=== PATIENT | male | born 1995 | race Caucasian/White ===

== ENCOUNTER 2018-07-12 22:56 | Emergency (ER) | payer BC, MEDICAID, OTHER ==
[~2018-07-12] VITALS: Ht 175.3 cm; Wt 45.0 kg
[~2018-07-12 22:56] MED LIST: NO HOME MEDS; ONDA4TAB6 PO; ONDA8TAB6 PO; ONDA8TAB9 PO; PANT20TA3 PO
[2018-07-13] MEDS ORDERED: AMOX500C2 PO (00:46)
[2018-07-13] MEDS ORDERED: bupivacaine 0.25%/epinephrine 1:200,000 inj (contains preserv. MDV) IJ ONE (00:50)
[2018-07-13] MEDS ORDERED: BUPIVAcaine/PF 2.5mg/ml (0.25%) 10ml vial IJ ONE (00:55)
[2018-07-13 01:13] VITALS: BP 118/70
== END 2018-07-13 01:15 | disposition home or self-care (01) ==
LOC: ER 22:57
DX: K08.89 Other specified disorders of teeth and supporting structures (principal); F12.90 Cannabis use, unspecified, uncomplicated
CPT/HCPCS: 64400; 99284; J3490

== ENCOUNTER 2019-10-04 10:31 | Emergency (ER) | payer MEDICAID ==
[~2019-10-04] VITALS: Ht 175.3 cm; Wt 63.6 kg
[~2019-10-04 10:31] MED LIST changes: +SUCR1TAB34 PO
--- NOTE | 2019-10-04 11:01 | NUR ---
provider at bedside to evaluate pt
[2019-10-04] MEDS ORDERED: LORazepam 1 MG tablet PO ONE ×3 (11:10→14:15)
[2019-10-04] MEDS ORDERED: normal saline 1000ML IV soln IVB ONE (11:10)
[2019-10-04 11:29] LABS: CLARITY,URINE BLOODY (Clear); COLOR,URINE RED (Yellow); UA COLLECTION TYPE CLN CATCH MIDSTREAM
[2019-10-04 11:31] LABS: BASOPHILS # (AUTO) 0.1 X10'3 (0-0.2); BASOPHILS % (AUTO) 0.5 % (0-1); EOSINOPHILS # (AUTO) 0.2 X10'3 (0-0.9); EOSINOPHILS % (AUTO) 1.6 % (0-6); HEMATOCRIT 42.8 % (42.0-52.0); HEMOGLOBIN 14.5 g/dl (14.0-17.9); LYMPHOCYTES # (AUTO) 4.1 X10'3 (1.1-4.8); LYMPHOCYTES % (AUTO) 40.6 % (21-51); MEAN CORPUSCULAR HEMOGLOBIN 31.6 PG (27.0-31.0); MEAN CORPUSCULAR HGB CONC 33.9 g/dL (33.0-36.5); MEAN CORPUSCULAR VOLUME 93.1 FL (78-98); MONOCYTES # (AUTO) 0.9 X10'3 (0-0.9); MONOCYTES % (AUTO) 9.2 % (2-12); NEUTROPHILS # (AUTO) 4.8 X10'3 (1.8-7.7); NEUTROPHILS % (AUTO) 48.1 % (42-75); PLATELET COUNT 335 X10'3 (140-440); RED BLOOD COUNT 4.59 X10'6 (4.70-6.10); RED CELL DISTRIBUTION WIDTH 13.5 % (11.5-14.5)
[2019-10-04 11:36] LABS: RBC,URINE TNTC /HPF (0-2)
[2019-10-04 11:37] LABS: ALANINE AMINOTRANSFERASE 18 U/L (12-78); ALBUMIN 4.2 G/DL (3.4-5.0); ALBUMIN/GLOBULIN RATIO 1.4 (1.1-1.5); ALKALINE PHOSPHATASE 111 IU/L (46-116); ANION GAP 8 (8-16); ASPARTATE AMINO TRANSFERASE 26 U/L (10-37); BILIRUBIN,TOTAL 0.5 MG/DL (0.1-1.0); BLOOD UREA NITROGEN 8 MG/DL (7-18); BUN/CREATININE RATIO 8.8 (5.4-32.0); CALCIUM 8.9 MG/DL (8.5-10.1); CHLORIDE 110 MMOL/L (99-107); CREATININE 0.91 MG/DL (0.60-1.10); GLUCOSE 77 MG/DL (70-104); LIPASE 155 U/L (73-393); POTASSIUM 3.6 MMOL/L (3.5-5.1); SODIUM 145 MMOL/L (135-145); TOTAL CARBON DIOXIDE 26.6 MMOL/L (24-32); TOTAL PROTEIN 7.3 G/DL (6.4-8.2); eGFR > 90 ML/MIN
[2019-10-04 11:39] LABS: BACTERIA,URINE 1+ /HPF (Neg)
[2019-10-04 11:40] LABS: SQUAMOUS EPITHELIAL CELL,UR NONE SEEN /LPF (FEW)
--- NOTE | 2019-10-04 11:43 | NUR ---
shop tech at bedside
--- NOTE | 2019-10-04 13:39 | NUR ---
pt standing in room, playing phone,
[2019-10-04] MEDS ORDERED: iohexol 300mg/ml 100ml inj. ONE (14:14)
--- NOTE | 2019-10-04 14:35 | NUR ---
pt c/o feeling anxious, lying on bed in dark room trying to relax
--- NOTE | 2019-10-04 14:37 | NUR ---
pt to CT
[2019-10-04] MEDS ORDERED: azithromycin 250mg tablet PO ONE (15:50)
[2019-10-04] MEDS ORDERED: CefTRIAXone 250MG IM Kit w/LIDOcaine IM ONE (15:50)
[2019-10-04 15:51] VITALS: BP 94/53
== END 2019-10-04 16:15 | disposition home or self-care (01) ==
LOC: ER 10:31
DX: R31.9 Hematuria, unspecified (principal); F12.90 Cannabis use, unspecified, uncomplicated; F41.9 Anxiety disorder, unspecified; Z98.890 Other specified postprocedural states; Z72.89 Other problems related to lifestyle; Z79.2 Long term (current) use of antibiotics; Z79.899 Other long term (current) drug therapy
CPT/HCPCS: 36415; 71045; 74178; 76775; 80053; 81001; 83690; 84484; 85025; 87088; 93005; 96372; 99285; J0696; J7030; Q9967

== ENCOUNTER 2020-01-22 08:59 | Emergency (ER) | payer MEDICAID ==
[~2020-01-22] VITALS: Ht 175.3 cm; Wt 54.5 kg
[2020-01-22 09:07] VITALS: BP 111/78
[2020-01-22] MEDS ORDERED: AMOX500C2 PO (09:36)
[2020-01-22] MEDS ORDERED: ACET-2615 PO (09:36)
[2020-01-22] MEDS ORDERED: IBUP-1984 PO (09:36)
== END 2020-01-22 09:50 | disposition home or self-care (01) ==
LOC: ER 08:59
DX: K08.89 Other specified disorders of teeth and supporting structures (principal); F41.9 Anxiety disorder, unspecified; F20.9 Schizophrenia, unspecified; F12.90 Cannabis use, unspecified, uncomplicated; Z72.89 Other problems related to lifestyle; Z98.890 Other specified postprocedural states; Z88.8 Allergy status to other drugs, medicaments and biological substances; Z79.899 Other long term (current) drug therapy
CPT/HCPCS: 99283

== ENCOUNTER 2020-11-25 06:49 | Emergency (ER) | payer MEDICAID ==
[~2020-11-25] VITALS: Ht 175.3 cm; Wt 53.6 kg
[~2020-11-25 06:49] MED LIST changes: +PANT20TA18 PO; -PANT20TA3 PO
[2020-11-25] MEDS ORDERED: ibuprofen tablet 400 MG TABLET PO ONE (07:10)
[2020-11-25] MEDS ORDERED: ondansetron 4mg rapidly disintigrating tab PO ONE (07:10)
[2020-11-25] MEDS ORDERED: LIDOcaine Viscous 15ml cup MM ONE (07:10)
[2020-11-25 07:32] VITALS: BP 123/79
== END 2020-11-25 07:26 | disposition home or self-care (01) ==
LOC: ER 06:49
DX: B34.9 Viral infection, unspecified (principal); Z20.822 Contact with and (suspected) exposure to COVID-19; R11.0 Nausea; R05 Cough; R09.81 Nasal congestion; R51.9 Headache, unspecified; F41.9 Anxiety disorder, unspecified; F20.9 Schizophrenia, unspecified; F31.9 Bipolar disorder, unspecified; F12.90 Cannabis use, unspecified, uncomplicated; Z98.890 Other specified postprocedural states; Z72.89 Other problems related to lifestyle; Z88.1 Allergy status to other antibiotic agents; Z79.899 Other long term (current) drug therapy
CPT/HCPCS: 87635; 99284; C9803

== ENCOUNTER 2020-12-14 06:17 | Emergency (ER) | payer MEDICAID ==
[~2020-12-14] VITALS: Ht 167.6 cm; Wt 125.5 kg
[2020-12-14 06:19] VITALS: BP 134/102
[2020-12-14] MEDS ORDERED: bupivacaine 0.25%/epinephrine 1:200,000 inj (contains preserv. MDV) IJ ONE (07:35)
[2020-12-14] MEDS ORDERED: HYDROcodone/acetaminophen 10/325mg tab PO ONE (07:35)
[2020-12-14] MEDS ORDERED: amox tr/potassium clavulanate 875/125mg TAB PO ONE (07:35)
[2020-12-14] MEDS ORDERED: naproxen 500mg tablet PO ONE (07:35)
[2020-12-14] MEDS ORDERED: BUPIVAcaine 0.5% W/EPI /PF 10ml vial IJ ONE (07:45)
[2020-12-14] MEDS ORDERED: HYDR-3965 PO (10:02)
[2020-12-14] MEDS ORDERED: NAPR-56 PO (10:02)
[2020-12-14] MEDS ORDERED: AMOX-117 PO (10:02)
== END 2020-12-14 10:25 | disposition home or self-care (01) ==
LOC: ER 06:17
DX: K01.1 Impacted teeth (principal); K08.89 Other specified disorders of teeth and supporting structures; F41.9 Anxiety disorder, unspecified; F12.90 Cannabis use, unspecified, uncomplicated; Z98.890 Other specified postprocedural states; Z72.89 Other problems related to lifestyle; Z88.1 Allergy status to other antibiotic agents; Z79.2 Long term (current) use of antibiotics; Z79.899 Other long term (current) drug therapy
CPT/HCPCS: 64400; 99284

== ENCOUNTER 2022-05-06 13:40 | Emergency (ER) | payer MEDICAID ==
[~2022-05-06] VITALS: Ht 175.3 cm; Wt 59.1 kg
[2022-05-06 14:06] VITALS: BP 113/71
[2022-05-06] MEDS ORDERED: SULF1TAB49 PO (17:25)
[2022-05-06] MEDS ORDERED: CEPH500C82 PO (17:25)
[2022-05-06] MEDS ORDERED: acetaminophen w/codeine (30MG) #3 tablet PO ONE (17:30)
[2022-05-06] MEDS ORDERED: cephalexin 500mg capsule PO ONE (17:30)
[2022-05-06] MEDS ORDERED: sulfamethoxazole/trimethoprim DS (800/160mg) tablet PO ONE (17:30)
[2022-05-06] MEDS ORDERED: ACET-1059 PO (17:33)
== END 2022-05-06 18:05 | disposition home or self-care (01) ==
LOC: ER 13:40
DX: L02.413 Cutaneous abscess of right upper limb (principal); L03.113 Cellulitis of right upper limb; F41.9 Anxiety disorder, unspecified; F17.200 Nicotine dependence, unspecified, uncomplicated; F12.90 Cannabis use, unspecified, uncomplicated; Z98.890 Other specified postprocedural states; Z88.1 Allergy status to other antibiotic agents; Z79.899 Other long term (current) drug therapy
CPT/HCPCS: 99284

== ENCOUNTER 2023-01-09 12:53 | Emergency (ER) | payer MEDICAID ==
[~2023-01-09] VITALS: Ht 172.7 cm; Wt 56.8 kg
[2023-01-09 13:24] LABS: BASOPHILS % (AUTO) 0.4 % (0-1); EOSINOPHILS # (AUTO) 0.1 X10'3 (0-0.9); EOSINOPHILS % (AUTO) 1.2 % (0-6); HEMATOCRIT 43.9 % (42.0-52.0); HEMOGLOBIN 14.8 g/dl (14.0-17.9); LYMPHOCYTES # (AUTO) 1.8 X10'3 (1.1-4.8); LYMPHOCYTES % (AUTO) 23.5 % (21-51); MEAN CORPUSCULAR HEMOGLOBIN 31.2 PG (27.0-31.0); MEAN CORPUSCULAR HGB CONC 33.7 g/dL (33.0-36.5); MEAN CORPUSCULAR VOLUME 92.6 FL (78-98); MEAN PLATELET VOLUME 6.7 FL (7.4-10.4); MONOCYTES # (AUTO) 0.9 X10'3 (0-0.9); MONOCYTES % (AUTO) 11.4 % (2-12); NEUTROPHILS # (AUTO) 4.9 X10'3 (1.8-7.7); NEUTROPHILS % (AUTO) 63.5 % (42-75); PLATELET COUNT 322 X10'3 (140-440); RED BLOOD COUNT 4.74 X10'6 (4.70-6.10); RED CELL DISTRIBUTION WIDTH 13.2 % (11.5-14.5); WHITE BLOOD COUNT 7.7 X10'3 (4.5-11.0)
[2023-01-09 13:25] VITALS: TEMP 97.9
[2023-01-09 13:31] LABS: ALANINE AMINOTRANSFERASE 26 U/L (12-78); ALBUMIN 3.9 G/DL (3.4-5.0); ALBUMIN/GLOBULIN RATIO 1.1 (1.1-1.5); ALKALINE PHOSPHATASE 114 IU/L (46-116); ANION GAP 12 (8-16); ASPARTATE AMINO TRANSFERASE 20 U/L (10-37); BILIRUBIN,TOTAL 0.5 MG/DL (0.1-1.0); BLOOD UREA NITROGEN 15 MG/DL (7-18); BUN/CREATININE RATIO 16.1 (10.0-20.0); CALCIUM 9.6 MG/DL (8.5-10.1); CHLORIDE 105 MMOL/L (99-107); CREATININE 0.93 MG/DL (0.60-1.10); GLUCOSE 81 MG/DL (70-104); POTASSIUM 3.8 MMOL/L (3.5-5.1); SODIUM 141 MMOL/L (135-145); TOTAL CARBON DIOXIDE 24.4 MMOL/L (24-32); TOTAL PROTEIN 7.3 G/DL (6.4-8.2); eCRCL 97 ML/MIN; eGFR > 90 ML/MIN
[2023-01-09 13:39] LABS: PRO BRAIN NATRIURETIC PEPTIDE 67 PG/ML (0-125)
[2023-01-09] MEDS ORDERED: ketorolac trometh. 30mg/ml inj. IM ONE (16:30)
[2023-01-09] MEDS ORDERED: oxyCODONE/APAP 5-325mg tablet PO ONE (16:30)
[2023-01-09] MEDS ORDERED: IBUP-1984 PO (16:32)
[2023-01-09 16:51] VITALS: BP 125/94; PULSE 64; RESP 20; O2SAT 100
== END 2023-01-09 16:53 | disposition home or self-care (01) ==
LOC: ER 12:53
DX: M94.0 Chondrocostal junction syndrome [Tietze] (principal); F41.9 Anxiety disorder, unspecified; F12.10 Cannabis abuse, uncomplicated; Z88.1 Allergy status to other antibiotic agents; Z79.899 Other long term (current) drug therapy
CPT/HCPCS: 36415; 71045; 80053; 83880; 84484; 85025; 93005; 96372; 99285; J1885

== ENCOUNTER 2023-07-16 23:14 | Emergency (ER) | payer MEDICAID ==
[~2023-07-16] VITALS: Ht 172.7 cm; Wt 54.5 kg
[2023-07-16 23:20] VITALS: BP 137/80; PULSE 109; TEMP 97.9; O2SAT 100
[2023-07-17 00:14] VITALS: RESP 16
[2023-07-17] MEDS: HYDROcodone/acetaminophen 5mg/325mg tablet PO ONE (00:14)
[2023-07-17] MEDS ORDERED: HYDR-3965 PO (00:18)
== END 2023-07-17 00:35 | disposition home or self-care (01) ==
LOC: ER 23:15
DX: S60.221A Contusion of right hand, initial encounter (principal); F20.9 Schizophrenia, unspecified; F12.10 Cannabis abuse, uncomplicated; F41.9 Anxiety disorder, unspecified; F31.9 Bipolar disorder, unspecified; Z88.1 Allergy status to other antibiotic agents; Z79.899 Other long term (current) drug therapy; X58.XXXA Exposure to other specified factors, initial encounter; Y93.89 Activity, other specified; Y92.89 Other specified places as the place of occurrence of the external cause; Y99.8 Other external cause status
CPT/HCPCS: 29125; 73130; 99283

== ENCOUNTER 2023-09-11 18:33 | Emergency (ER) | payer MEDICAID ==
[~2023-09-11] VITALS: Ht 172.7 cm; Wt 58.0 kg
[2023-09-11 18:51] VITALS: BP 108/76; PULSE 105; RESP 20; TEMP 98.2; O2SAT 96
[2023-09-11] MEDS ORDERED: CHLO25CA10 PO (21:06)
[2023-09-11] MEDS: cloNIDine 0.1 MG/24 HOUR patch (7 day patch) TD ONE (21:23)
== END 2023-09-11 21:33 | disposition home or self-care (01) ==
LOC: ER 18:34
DX: F10.239 Alcohol dependence with withdrawal, unspecified (principal); F11.23 Opioid dependence with withdrawal; F19.10 Other psychoactive substance abuse, uncomplicated; F12.90 Cannabis use, unspecified, uncomplicated; Z88.1 Allergy status to other antibiotic agents; Z79.899 Other long term (current) drug therapy; Y90.9 Presence of alcohol in blood, level not specified
CPT/HCPCS: 99283

== ENCOUNTER 2024-10-30 21:23 | Emergency (ER) | payer MEDICAID ==
[~2024-10-30] VITALS: Ht 172.7 cm; Wt 52.7 kg
[~2024-10-30 21:23] MED LIST changes: +CHLO25CA10 PO
[2024-10-30 21:25] VITALS: TEMP 98.3
[2024-10-30 21:31] VITALS: BP 91/66; PULSE 135; O2SAT 99
--- NOTE | 2024-10-30 21:33 | Physician Documentation ---
History of Present Illness ~ Chief Complaint: Abdominal Pain Stated Complaint: FLANK PAIN Time Seen by MD: 21:30 Primary Medical Doctor: Chanda HELLER Patient presents to the emergency room with one day history of right flank pain. No prior instances. No dysuria. Patient endorses significant vomiting as well. Medication Reconciliation Allergies: Coded Allergies: clindamycin (Verified Allergy, Unknown, 01/09/23) Scheduled Chlordiazepoxide Hcl (Librium), 25 MG PO Q6H Ondansetron (Zofran Odt), 4 MG PO QID Sucralfate (Carafate), 1 TAB PO ACHS Scheduled PRN Ondansetron Hcl (Zofran), 1 TABLET PO Q6H PRN for nausea Ondansetron Hcl (Zofran), 8 MG PO Q8HPRN PRN for nausea/vomiting Pantoprazole Sodium (Protonix), 20 MG PO DAILY PRN for abdominal cramps Miscellaneous Medications Home Med List (No Home Medications), (Reported) Past Medical History Past Medical History: *GI/HEPATOBILIARY*, Anxiety Past Surgical History: noncontributory, abdominal surgery, other Other Past Family History: Schizophrenia, Bipolar Alcohol Use: Occasionally Drug Use: marijuana Lives with: Family Lives In: Home Occupation: student Review of Systems ROS All review of systems negative except as per HPI Physical Exam Vital Signs: Temperature: 98.3, Source: Oral, Heart Rate: 135, Respiratory Rate: 20, BP: 91/66, Pulse Oximetry: 99, Weight: 52.730 Oxygen Flow Rate: 0 Physical Exam General: Patient is awake, alert, oriented x4 in moderate distress vomiting, diaphoretic Head: Normocephalic and atraumatic. Eyes: Conjunctival normal. EOMI. PERRL. ENT: Mucous membranes moist. Neck: Supple, trachea is midline. Chest: Clear to auscultation bilaterally without rales, rhonchi, or wheezes. There is no accessory muscle use or retractions. Cardiac: Tachycardic and regular without murmurs, gallops, or rubs. Abd: Soft, nondistended, nontender, with normoactive bowel sounds. No guarding, rebound, or rigidity. Positive right-sided CVA tenderness Progress Results/Orders Results/Orders Orders - VÍCTOR PARIS MD Electrocardiogram (10/30/24 21:31) Culture Blood (10/30/24 21:31) Ct Abdomen Pelvis (10/30/24 21:30) Metoclopramide Inj (Reglan Inj) (10/30/24 23:10) Acetaminophen Iv (10/30/24 23:10) Completed Orders - VÍCTOR PARIS MD Ketorolac Trometh 15mg/Ml Vial (Toradol (10/30/24 21:30) Ondansetron Inj. (Zofran 4mg/2ml Vial) (10/30/24 21:30) Normal Saline 1000ml (Sodium Chloride 10 (10/30/24 21:30) Cbc/Diff (10/30/24 21:31) MG (10/30/24 21:31) Procalcitonin (10/30/24 21:31) Lacticsepsis (10/30/24 21:31) Drug Screen, Urine (10/30/24 21:31) Ct Abdomen Pelvis (10/30/24 21:30) CMP (10/30/24 21:39) Lipase (10/30/24 21:39) Ua W/Microscopic, Cult If Ind (10/30/24 22:10) Medications Received in ER Medications (Trade) Dose Ordered Sig/Nicki Route PRN Reason Start Time Stop Time Status Last Admin Dose Admin (Toradol injection) 15 mg ONCE ONCE IV 10/30/24 21:30 10/30/24 21:32 DC 10/30/24 22:11 15 MG (Zofran 4mg/2ml vial) 8 mg ONCE ONCE IV 10/30/24 21:30 10/30/24 21:32 DC 10/30/24 22:10 8 MG Sodium Chloride 1,000 ml @ 1,000 mls/hr ONCE ONCE IV 10/30/24 21:30 10/30/24 22:29 DC 10/30/24 22:09 1,000 MLS/HR Vital Signs 10/30/24 10/30/24 10/30/24 21:25 21:31 22:11 Temp 98.3 Pulse 131 135 Resp 15 20 14 B/P (MAP) 91/66 91/66 (74) Pulse Ox 100 99 O2 Flow Rate 0 0 Laboratory Tests Test 10/30/24 21:41 10/30/24 22:10 White Blood Count 7.9 Red Blood Count 4.65 L Hemoglobin 15.3 Hematocrit 43.9 Mean Corpuscular Volume 94.4 Mean Corpuscular Hemoglobin 32.9 H Mean Corpuscular Hemoglobin Concent 34.9 Red Cell Distribution Width 13.2 Platelet Count 363 Mean Platelet Volume 6.6 L Neutrophils (%) (Auto) 46.8 Lymphocytes (%) (Auto) 38.9 Monocytes (%) (Auto) 11.8 Eosinophils (%) (Auto) 1.9 Basophils (%) (Auto) 0.6 Neutrophils # (Auto) 3.7 Lymphocytes # (Auto) 3.1 Monocytes # (Auto) 0.9 Eosinophils # (Auto) 0.1 Basophils # (Auto) 0.0 CBC Comment Sodium Level 145 Potassium Level 3.4 L Chloride Level 105 Carbon Dioxide Level 27.1 Anion Gap 13 Blood Urea Nitrogen 6 L Creatinine 0.97 Estimated GFR/1.73 m2 > 90 BUN/Creatinine Ratio 6.2 L Glucose Level 116 H Lactic Acid Level 3.1 H Calcium Level 8.9 Magnesium Level 1.9 Total Bilirubin 0.7 Aspartate Amino Transf (AST/SGOT) 40 H Alanine Aminotransferase (ALT/SGPT) 42 Alkaline Phosphatase 186 H Total Protein 7.8 Albumin 4.1 Globulin 3.7 Albumin/Globulin Ratio 1.1 Lipase 51 Procalcitonin < 0.05 Chemistry Comments Urine Specimen Description Cln catch midstream Urine Color Yellow Urine Clarity Clear Urine pH 6.0 Urine Specific [place] 1.020 Urine Protein 30 H Urine Glucose (UA) Negative Urine Ketones Trace H Urine Occult Blood Moderate H Urine Nitrite Negative Urine Bilirubin Negative Urine Urobilinogen 1.0 Urine Leukocyte Esterase Negative Urine RBC 3-10 Urine WBC 0-4 Urine Squamous Epithelial Cells Few Urine Calcium Oxalate Crystals Few Urine Bacteria Few Urine Mucus Few Urine Culture Indicated Not ind Volume Urine Centrifuged 10 ml Urine Comment Urine Opiates Screen Negative Urine Methadone Screen Negative Urine Fentanyl Screen Negative Urine Barbiturates Screen Negative Urine Phencyclidine Screen Negative Urine Amphetamines Screen Negative Urine Benzodiazepines Screen Negative Urine Cocaine Screen Positive Urine Cannabinoids Screen Positive Drug Screen Comment EKG/XRAY/CT/US/VASC/MRI EKG : Additional Comment EKG interpreted by myself shows time of 06/16/2038, rate 124, sinus tachycardia, right axis deviation, no ST changes Chest X-Ray : Additional Comments Exam: CT ABDOMEN PELVIS COMPUTERIZED TOMOGRAPHY ABDOMEN AND PELVIS WITHOUT CONTRAST REASON FOR EXAM: right flank pain COMPARISON: None TECHNIQUE: Spiral scans were acquired from the diaphragm to the symphysis pubis without intravenous contrast administration. 2-D coronal and sagittal reformatted images were provided. Automated exposure control was used. RADIATION DOSE: CTDI: 6 mGy DLP: 333 mGy-cm FINDINGS: The visualized lung bases are clear. There is no pleural effusion. There is no pericardial effusion. The spleen is not enlarged. The liver is normal in size and contour. No calcified gallstone is identified. Evaluation of the abdominal organs is suboptimal in the absence of intravenous contrast. Unenhanced appearance of the pancreas is unremarkable. The adrenal glands are within normal limits. The kidneys are similar in size. There is a 2 mm nonobstructive calculus of the interpolar region of the right kidney. There is no hydronephrosis of either kidney. There is no abdominal aortic aneurysm. There is no pathologic lymphadenopathy in the abdomen or pelvis. The urinary bladder is unremarkable. The prostate and seminal vesicles are within normal limits. There is no significant colonic stool burden. The appendix is not definitely seen. There is no inflammatory change about the cecum to suggest appendicitis. There is no pathologic distention of the small bowel to suggest obstruction. No free fluid is identified in the abdomen or pelvis. No acute osseous abnormality is identified. IMPRESSION: There is a 2 mm right renal calculus . No hydronephrosis of either kidney. No acute abnormality in the abdomen or pelvis. Medical Decision Making Findings Patient presents to the emergency room for evaluation of flank pain. Differentials include but are not limited to musculoskeletal pain, kidney stone, aortic pathology, referred pain therefore emergent labs and imaging indicated. Labs reassuring for no elevation of white blood cell count. Small amount of blood seen in urine and given patient's nausea vomiting and flank pain that has concern for possible kidney stone therefore CT scan performed which was negative for stone however patient's pain has completely resolved and I believe he has passed a stone. No evidence of urinary tract infection. No evidence of kidney injury. Patient initially had tachycardic and hypotensive and that has concern for possible sepsis however procalcitonin is negative. Lactic acid is mildly elevated however patient was riding in pain he had not feel that has represents infectious process. Patient's heart rate and blood pressures responded to pain medications as well as IV fluids. Departure Disposition: HOME / SELF CARE / HOMELESS Impression: Primary Impression: Suspected kidney stone Condition: Improved Discharge Instructions: Kidney Stones Referrals: NO PRIMARY CARE PROVIDER (PCP) Prescriptions Ibuprofen* (Motrin*) 400 Mg Tablet 800 MG PO Q8H, #20 TAB Prov: VÍCTOR PARIS MD 10/30/24 Ondansetron 8mg ODT (Ondansetron Odt) 8 Mg Tab.rapdis 1 TAB PO Q6H for nausea/vomiting for 3 Days, #12 TAB 0 Refills Prov: VÍCTOR PARIS MD 10/30/24 Education Educated: Patient Educated regarding: diagnosis, treatment, need for follow up Signature Scribe Signature: No scribe Attestation: The note accurately reflects work and decisions made by me.Víctor Paris MD 10/30/24 23:16 VÍCTOR PARIS MD Oct 30, 2024 21:33
[2024-10-30 21:55] LABS: BASOPHILS % (AUTO) 0.6 % (0-1); EOSINOPHILS # (AUTO) 0.1 X10'3 (0-0.9); EOSINOPHILS % (AUTO) 1.9 % (0-6); HEMATOCRIT 43.9 % (42.0-52.0); HEMOGLOBIN 15.3 g/dl (14.0-17.9); LYMPHOCYTES # (AUTO) 3.1 X10'3 (1.1-4.8); LYMPHOCYTES % (AUTO) 38.9 % (21-51); MEAN CORPUSCULAR HEMOGLOBIN 32.9 PG (27.0-31.0); MEAN CORPUSCULAR HGB CONC 34.9 g/dL (33.0-36.5); MEAN CORPUSCULAR VOLUME 94.4 FL (78-98); MEAN PLATELET VOLUME 6.6 FL (7.4-10.4); MONOCYTES # (AUTO) 0.9 X10'3 (0-0.9); MONOCYTES % (AUTO) 11.8 % (2-12); NEUTROPHILS # (AUTO) 3.7 X10'3 (1.8-7.7); NEUTROPHILS % (AUTO) 46.8 % (42-75); PLATELET COUNT 363 X10'3 (140-440); RED BLOOD COUNT 4.65 X10'6 (4.70-6.10); RED CELL DISTRIBUTION WIDTH 13.2 % (11.5-14.5); WHITE BLOOD COUNT 7.9 X10'3 (4.5-11.0)
[2024-10-30 22:09] LABS: ALANINE AMINOTRANSFERASE 42 U/L (12-78); ALBUMIN 4.1 G/DL (3.4-5.0); ALBUMIN/GLOBULIN RATIO 1.1 (1.1-1.5); ALKALINE PHOSPHATASE 186 IU/L (46-116); ANION GAP 13 (8-16); ASPARTATE AMINO TRANSFERASE 40 U/L (10-37); BILIRUBIN,TOTAL 0.7 MG/DL (0.1-1.0); BLOOD UREA NITROGEN 6 MG/DL (7-18); BUN/CREATININE RATIO 6.2 (10.0-20.0); CALCIUM 8.9 MG/DL (8.5-10.1); CHLORIDE 105 MMOL/L (99-107); CREATININE 0.97 MG/DL (0.60-1.10); GLUCOSE 116 MG/DL (70-104); LIPASE 51 U/L (16-77); MAGNESIUM 1.9 MG/DL (1.5-2.4); POTASSIUM 3.4 MMOL/L (3.5-5.1); SODIUM 145 MMOL/L (135-145); TOTAL CARBON DIOXIDE 27.1 MMOL/L (24-32); TOTAL PROTEIN 7.8 G/DL (6.4-8.2); eCRCL 85 ML/MIN; eGFR > 90 ML/MIN
[2024-10-30] MEDS: normal saline 1000ml 1,000 ML IV ONE (22:09)
[2024-10-30] MEDS: ondansetron/PF 4mg/2ml inj IV ONE (22:10)
[2024-10-30] MEDS: ketorolac trometh 15mg/ml vial 15 MG/ML ML IV ONE (22:11)
[2024-10-30 22:15] VITALS: RESP 15
[2024-10-30 22:35] LABS: BILIRUBIN,URINE NEGATIVE (Neg); CLARITY,URINE CLEAR (Clear); COLOR,URINE YELLOW (Yellow); GLUCOSE, URINE NEGATIVE (Neg); KETONES,URINE TRACE mg/dl (Neg); LEUKOCYTE ESTERASE ,URINE NEGATIVE (Neg); NITRITES, URINE NEGATIVE (Neg); OCCULT BLOOD,URINE MODERATE (Neg); PROTEIN,URINE 30 mg/dl (Neg)
[2024-10-30 22:37] LABS: UA COLLECTION TYPE CLN CATCH MIDSTREAM
[2024-10-30 22:43] LABS: CAL OXALATE CRYSTALS FEW /HPF (NEGATIVE); MUCUS STRANDS FEW /LPF (Neg); SQUAMOUS EPITHELIAL CELL,UR FEW /LPF (FEW); WBC,URINE 0-4 /HPF (0-4)
[2024-10-30 22:44] LABS: BACTERIA,URINE FEW /HPF (Neg)
[2024-10-30 22:47] LABS: URINE AMPHETAMINE SCREEN NEGATIVE (Neg); URINE BARBITUATE SCREEN NEGATIVE (Neg); URINE BENZODIAZEPINES SCREEN NEGATIVE (Neg); URINE CANNABINOID SCREEN POSITIVE (Neg); URINE COCAINE SCREEN POSITIVE (Neg); URINE METHADONE SCREEN NEGATIVE (Neg); URINE OPIATE SCREEN NEGATIVE (Neg); URINE PHENCYCLIDINE SCREEN NEGATIVE (Neg)
--- NOTE | 2024-10-30 23:02 | RADIOLOGY REPORT ---
COMPUTERIZED TOMOGRAPHY ABDOMEN AND PELVIS WITHOUT CONTRAST REASON FOR EXAM: right flank pain COMPARISON: None TECHNIQUE: Spiral scans were acquired from the diaphragm to the symphysis pubis without intravenous c ontrast administration. 2-D coronal and sagittal reformatted images were provided. Automated exposure control was used. RADIATION DOSE: CTDI: 6 mGy DLP: 333 mGy-cm FINDINGS: The visualized lung bases are clear. There is no pleural effusion. There is no pericardial effusion. The spleen is not enlarged. The liver is normal in size and contour. No calcified gallstone is identi fied. Evaluation of the abdominal organs is suboptimal in the absence of intravenous contrast. Unenh anced appearance of the pancreas is unremarkable. The adrenal glands are within normal limits. The k idneys are similar in size. There is a 2 mm nonobstructive calculus of the interpolar region of the r ight kidney. There is no hydronephrosis of either kidney. There is no abdominal aortic aneurysm. Ther e is no pathologic lymphadenopathy in the abdomen or pelvis. The urinary bladder is unremarkable. Th e prostate and seminal vesicles are within normal limits. There is no significant colonic stool burde n. The appendix is not definitely seen. There is no inflammatory change about the cecum to suggest a ppendicitis. There is no pathologic distention of the small bowel to suggest obstruction. No free flu id is identified in the abdomen or pelvis. No acute osseous abnormality is identified. IMPRESSION: There is a 2 mm right renal calculus . No hydronephrosis of either kidney. No acute abnormality in the abdomen or pelvis.
[2024-10-30] MEDS ORDERED: IBUP-1984 PO (23:16)
[2024-10-30] MEDS ORDERED: ONDA-245 PO (23:16)
[2024-10-30] MEDS: metoclopramide 5 mg/ml inj IV ONE (23:17)
[2024-10-30] MEDS: acetaminophen 1,000mg/100ml IV 100 ML IV ONE (23:17)
--- NOTE | 2024-10-31 05:44 | ELECTROCARDIOGRAPH REPORT ---
[facility] [place]: [place]24-10-30 Test Time: 21:39:44 Pat Name: JERARDO BLANK Department: EMERGENCY ROOM [id number]: Gender: M [place]: : 1995 Requested By: NICOLAS DEE Order Number: [id number] Reading MD: Dr. Yuriy Quinones Measurements Intervals [place] Rate: 124 P: 64 KS: 151 QRS: 92 QRSD: 82 T: 9 QT: 301 QTc: 433 Interpretive Statements Sinus tachycardia Probable left atrial enlargement Borderline right axis deviation Borderline ST elevation, lateral leads Baseline wander in lead(s) V2 Electronically Signed On 10-31-2024 6:09:[address] Yuriy Quinones Please click the below link to view image of tracing.
== END 2024-10-30 23:40 | disposition home or self-care (01) ==
LOC: ER 21:24
DX: R10.84 Generalized abdominal pain (principal); F41.9 Anxiety disorder, unspecified; F12.90 Cannabis use, unspecified, uncomplicated; F31.9 Bipolar disorder, unspecified; Z72.89 Other problems related to lifestyle; Z88.1 Allergy status to other antibiotic agents; Z79.899 Other long term (current) drug therapy
CPT/HCPCS: 36415; 74176; 80053; 80305; 81001; 83605; 83690; 83735; 84145; 85025; 87040; 93005; 96361; 96374; 96375; 99285; J0131; J1885; J2405; J2765; J7030

== ENCOUNTER 2024-11-27 15:05 | Emergency (ER) | payer MEDICAID ==
[~2024-11-27] VITALS: Ht 172.7 cm; Wt 65.9 kg
[~2024-11-27 15:05] MED LIST changes: +IBUP-1984 PO; +ONDA-245 PO
[2024-11-27 15:16] VITALS: BP 131/62; PULSE 111; RESP 18; TEMP 97.2; O2SAT 96
--- NOTE | 2024-11-27 15:21 | Physician Documentation ---
History of Present Illness ~ Chief Complaint: Rib pain Stated Complaint: RIB PAIN Time Seen by MD: 15:38 Primary Medical Doctor: Chanda [facility] The patient is seen today with complaints of left-sided rib pain after he states [place] few days. Patient states he has broken this same set of ribs previously. He denies any current shortness of breath or abdominal pain or nausea, vomiting, diarrhea. Tetanus within 5 Years?: No Allergies: Coded Allergies: clindamycin (Verified Allergy, Unknown, 01/09/23) Active Prescriptions See Medication Reconciliation Form. Medication Reconciliation Scheduled Chlordiazepoxide Hcl (Librium), 25 MG PO Q6H Ibuprofen* (Motrin*), 800 MG PO Q8H Ondansetron (Zofran Odt), 4 MG PO QID Ondansetron 8mg ODT (Ondansetron Odt), 1 TAB PO Q6H Sucralfate (Carafate), 1 TAB PO ACHS Scheduled PRN Ondansetron Hcl (Zofran), 1 TABLET PO Q6H PRN for nausea Ondansetron Hcl (Zofran), 8 MG PO Q8HPRN PRN for nausea/vomiting Pantoprazole Sodium (Protonix), 20 MG PO DAILY PRN for abdominal cramps Miscellaneous Medications Home Med List (No Home Medications), (Reported) Past Medical History Past Medical History: *GI/HEPATOBILIARY*, Anxiety Past Surgical History: noncontributory, abdominal surgery, other Other Past Family History: Schizophrenia, Bipolar Alcohol Use: Occasionally Drug Use: marijuana Lives with: Family Lives In: Home Occupation: student Review of Systems ROS As stated above in the HPI, otherwise all systems are reviewed and negative. Physical Exam Vital Signs: Temperature: 97.2, Source: Temporal, Heart Rate: 111, Respiratory Rate: 18, BP: 131/62, Pulse Oximetry: 96, Weight: 65.910 Oxygen Flow Rate: 0 Physical Exam Patient left prior to physical exam. Progress Results/Orders Results/Orders Vital Signs 11/27/24 15:16 Temp 97.2 Pulse 111 Resp 18 B/P (MAP) 131/62 Pulse Ox 96 O2 Flow Rate 0 EKG/XRAY/CT/US/VASC/MRI Chest X-Ray : Additional Comments [address] [address] DIAGNOSTIC RADIOLOGY Patient: JERARDO BLANK Medical Record: [id number] [facility] : 1995, Age: 29 Sex: Male Location: ER Patient Status: [facility] ER Service Date/Time: 11/27/241525 Ordering Physician: CHAMP HANNAH MD Exam: UNI RIBS WITH PA CHEST FRONTAL CHEST AND LEFT RIB RADIOGRAPHS HISTORY: LEFT SIDED RIB PAIN TECHNIQUE: Multiple views of the left ribs with frontal view of the chest. COMPARISON: None. FINDINGS: The trachea is midline. The cardiac silhouette and mediastinum are within normal limits. No pneumothorax, pleural effusions, or consolidations. There is no evidence of an acute fracture, dislocation, blastic, or lytic lesions. No radiopaque foreign bodies. No superficial soft tissue abnormalities. Impression: 1. No evidence of an acute rib fracture. 2. No acute cardiopulmonary disease. Electronically Signed by:LADONNA VARNER DO Date & Time: 11/27/241547 Dictated by: LADONNA VARNER DO Dictation date and time: 11/27/241547 Primary Care Provider: NO PRIMARY CARE PROVIDER cc: CHAMP HANNAH MD ~ Medical Decision Making Differential Dx:Considerations: Include: Chest wall contusion, Flail chest, Myocardial contusion, Pneumothorax, Pulmonary contusion, Rib fracture, Renal contusion, Splenic fracture, Tension pneumothorax Additional Comment Patient had been seen by provider Dinesh CANO in triage, and was placed in fast track. When I went to the room to examine the patient and discussed his x- ray results, he was gone. On discussion with the registration staff, it turns out that the patient left because he was in too much pain, and it was taking too long. Departure Time of Disposition: 15:54 Disposition: 01 HOME / SELF CARE / HOMELESS Impression: Primary Impression: Rib pain Condition: Stable Discharge Instructions: Rib Contusion Additional Instructions: No broken ribs, but you likely do have some bruising/contusions of ribs. Ice frequently. Brace sore areas when coughing, sneezing, moving. Use [id number] acetaminophen or Ibuprofen as needed for pain. Return if worse, otherwise followup with primary care. Referrals: NO PRIMARY CARE PROVIDER (PCP) Education Educated: Patient Educated regarding: diagnosis, treatment, prognosis, need for follow up Signature Scribe Signature: no scribe Attestation: The note accurately reflects work and decisions made by me.Dayna Putnam - CHANDAN 11/27/24 16:19 DINESH MCKAY PAC Nov 27, 2024 15:21 DAYNA PUTNAM [employer] Nov 27, 2024 15:54
--- NOTE | 2024-11-27 15:51 | RADIOLOGY REPORT ---
FRONTAL CHEST AND LEFT RIB RADIOGRAPHS HISTORY: LEFT SIDED RIB PAIN TECHNIQUE: Multiple views of the left ribs with frontal view of the chest. COMPARISON: None. FINDINGS: The trachea is midline. The cardiac silhouette and mediastinum are within normal limits. No pneumothorax, pleural effusions, or consolidations. There is no evidence of an acute fracture, dislocation, blastic, or lytic lesions. No radiopaque foreign bodies. No superficial soft tissue abnormalities. Impression: 1. No evidence of an acute rib fracture. 2. No acute cardiopulmonary disease.
== END 2024-11-27 16:25 | disposition left against medical advice (07) ==
LOC: ER 15:06
DX: R07.81 Pleurodynia (principal); F41.9 Anxiety disorder, unspecified; F12.90 Cannabis use, unspecified, uncomplicated
CPT/HCPCS: 71101; 99283

== ENCOUNTER 2024-12-05 06:36 | Emergency (ER) | payer MEDICAID ==
[~2024-12-05] VITALS: Ht 175.3 cm; Wt 50.3 kg
[~2024-12-05 06:36] MED LIST changes: -IBUP-1984 PO
--- NOTE | 2024-12-05 07:16 | Physician Documentation ---
History of Present Illness ~ Chief Complaint: Rib pain Stated Complaint: RIB PAIN,ABDOMINAL PAIN Time Seen by MD: 07:12 Primary Medical Doctor: Chanda HELLER This is a 29-year-old gentleman who comes in for evaluation of left-sided rib pain, that is worse with deep inspiration, talking, palpation after his slipped [place] dock six days ago on 11/29/2024. Did not strike his head, did not lose consciousness. Did not attempt to treat it with the ibuprofen without much success. Never experienced this in the past. Denies any abdominal pain. Denies any nausea, vomiting. Denies any concerns for tobacco, alcohol or illicit substances use Tetanus within 5 Years?: No Allergies: Coded Allergies: clindamycin (Verified Allergy, Unknown, 01/09/23) Active Prescriptions See Medication Reconciliation Form. Medication Reconciliation Scheduled Chlordiazepoxide Hcl (Librium), 25 MG PO Q6H Ondansetron (Zofran Odt), 4 MG PO QID Ondansetron 8mg ODT (Ondansetron Odt), 1 TAB PO Q6H Sucralfate (Carafate), 1 TAB PO ACHS Scheduled PRN Ondansetron Hcl (Zofran), 1 TABLET PO Q6H PRN for nausea Ondansetron Hcl (Zofran), 8 MG PO Q8HPRN PRN for nausea/vomiting Pantoprazole Sodium (Protonix), 20 MG PO DAILY PRN for abdominal cramps Miscellaneous Medications Home Med List (No Home Medications), (Reported) Discontinued Medications Ibuprofen* (Motrin*), 800 MG PO Q8H Discontinued Reason: Auto Discontinued Past Medical History Past Medical History: *GI/HEPATOBILIARY*, Anxiety Past Surgical History: noncontributory, abdominal surgery, other Other Past Family History: Schizophrenia, Bipolar Alcohol Use: Occasionally Drug Use: marijuana Lives with: Family Lives In: Home Occupation: student Review of Systems ROS 10 point review of systems was performed and unless noted above in HPI is negative for acute process/complaint. Physical Exam Vital Signs: Temperature: 97.3, Source: Temporal, Heart Rate: 92, Respiratory Rate: 16, BP: 128/85, Pulse Oximetry: 98, Weight: 50.300 Physical Exam GENERAL: Awake, alert, oriented, GCS 15, no apparent distress, non-toxic appearing, answers questions, follows commands appropriately. HEENT: Atraumatic, normocephalic, pupils equal, extraocular muscles intact, sclerae anicteric, mucus membranes moist, oropharynx is clear, no stridor. NECK: supple, full active range of motion, trachea midline, no thyromegaly, no lymphadenopathy, no JVD. CARDIOVASCULAR: regular rate/rhythm, no murmurs/gallops/rubs, Pulses are 2+ in all extremities and symmetric. Capillary refill less than 2 seconds. PULMONARY: Nonlabored, good air movement ,no respiratory distress, speaking in full sentences, clear to auscultation bilaterally, no wheezing, no ronchi, no rales, no accessory muscle use. GASTROINTESTINAL: Soft, non-tender, non-distended, normal active bowel sounds, no organomegaly, no pulsatile masses, no CVA tenderness. NEUROLOGIC: Lucid with normal mental status. Normal facial symmetry. Moves all extremities symmetrically and with purpose. No truncal ataxia. Speech is fluid without evidence of dysarthria or aphasia, no focal deficits appreciated. MUSCULOSKELETAL: There is full range of motion of all extremities. There is no joint pain or joint swelling or joint erythema. There is no muscle pain or tenderness or swelling. EXTREMITIES: warm, well-perfused, no cyanosis, no clubbing, no edema, no acute deformities. Skin: warm, dry, no rashes or lesions, no jaundice, no petechiae orpurpura. No ecchymosis. PSYCHIATRIC: Normal affect, normal insight, normal concentration. Focused exam: Left-sided chest wall tenderness to palpation without significant bruising or crepitus. No flail chest. Progress Results/Orders Results/Orders Orders - COCO MESA DO Ribs,Unilat (12/05/24 06:41) Ct Chest (12/05/24 07:40) Completed Orders - COCO MESA DO Ribs,Unilat (12/05/24 06:41) Hydrocodone/Apap 5/325mg Tab ([place] 5/32 (12/05/24 07:15) Ct Chest (12/05/24 07:40) Medications Received in ER Medications (Trade) Dose Ordered Sig/Nicki Route PRN Reason Start Time Stop Time Status Last Admin Dose Admin ([place] 5/325mg tablet) 1 tab ONCE ONCE PO 12/05/24 07:15 12/05/24 07:16 DC 12/05/24 07:33 1 TAB Vital Signs 12/05/24 12/05/24 12/05/24 06:37 07:22 07:33 Temp 97.3 97.3 Pulse 92 71 Resp 16 16 16 B/P (MAP) 128/85 127/73 (91) Pulse Ox 98 95 O2 Flow Rate 0 Medical Decision Making Findings Facility Status: ED Holds, E process The plan was discussed with the patient, who demonstrates clear understanding of the plan and is in agreement with the plan unless otherwise noted in the chart. All questions have been answered, all concerns were addressed unless otherwise documented. I was available throughout their ED stay for frequent reassessment and questions. Differential Diagnoses (considered and possible or likely): [Slip and fall, acute traumatic pain, rib contusion versus rib fracture, unlikely to represent splenic injuries/rupture given duration of symptoms, and he is hemodynamic stability.] ??Differential Diagnoses (considered and unlikely, not requiring evaluation currently): [Unlikely intra-abdominal process. He denies head strike.] MDM Data Please see [facility] for the following: Independent Historians and external Records Review. Historian: [Patient] Independent Historians: ?[None] Medication Management: [Reviewed medication list] Social History and determinants: [Reviewed] Please see the body of the note for the following: Any independent interpretations of ECG, imaging studies. All vitals signs/haemodynamics, ordered tests were independently reviewed and interpreted by myself. Nursing triage complaint and vitals reviewed, additional nursing notes were reviewed as available and I agree unless otherwise noted or documented in contradiction in the chart Vital Signs: Independently reviewed Labs: Independently interpreted Imaging: Independently interpreted Old Medical Records: Independently reviewed, see [facility] for relevant summary and information Pulse Oximetry: [96%] interpreted as [normal on room air] by me Additionally notably showing: [Hemodynamically stable. X-ray showed no fracture. Considering ongoing persistent symptoms, CT was obtained which also shows no fracture. On my independent review and interpretation the spleen appears to be appropriate morphology.] Tests considered but not ordered include: [Hematologic workup has been considered but does not appear to be necessary given mechanical nature of the injury.] Social Determinants of Health Impact: Patient was evaluated in [place] [place] to healthcare due to below par ratio of patient to medical providers. [] Comorbid Conditions Impacting Present Evaluation and Care/Treatment: [None] Management Discussions with other Healthcare Providers: [None] Treatment and Disposition Medication Management (Given or considered): [Pain management]. See EMR for details Consideration for Hospitalization/Escalation/Deescalation of Care: Admission for observation has been considered, [however the patient is able to tolerate p.o., their symptoms are controlled, they are able to rely on oral medications, and their chief complaint/diagnosis can be managed on outpatient basis.] ?ED Course:?[No clinical deterioration. Pain improved.] ?Shared decision making:? Patient is hemodynamically stable for discharge home with follow with their primary care provider. [ ] Specific and cautious return precautions provided and discussed with full understanding. Any incidental findings were also discussed and follow up recommendations given. [] All questions answered. Patient/family were able to verbalize back return precautions. Patient/family agree to plan. Copies of imaging and laboratory studies were provided. Code status:?FULL Please see the full Electronic Medical Record for full details of nursing d ocumentation, medications list, other records of complete past medical history and conditions, vital signs, laboratory studies, and any radiologic study interpretations by radiologists. Portions of this note were completed using [employer] dictation software and as a result there may exist minor errors in spelling. I have reviewed elements of past family and social history and agree as included in note. Departure Disposition: HOME / SELF CARE / HOMELESS Impression: Primary Impression: Contusion of left chest wall Condition: Improved Discharge Instructions: Rib Contusion Referrals: NO PRIMARY CARE PROVIDER (PCP) Prescriptions Naproxen (Naproxen) 375 Mg Tablet 1 TAB PO Q12H for pain for 30 Days, #60 TAB 0 Refills with food Prov: COCO MESA DO 12/05/24 Cyclobenzaprine HCl (Cyclobenzaprine HCl) 5 Mg Tablet 1 TAB PO TID PRN PRN for muscle spasms for 10 Days, #30 TAB 0 Refills Prov: COCO MESA DO 12/05/24 Diclofenac Sodium (Voltaren Arthritis Pain) 1 % Gel..gram. 2 GM TOP BID PRN for pain for 10 Days, #100 GR Prov: COCO MESA DO 12/05/24 Lidocaine (Lidoderm) 5 % Adh..patch 1 PATCH TOP DAILY for 30 Days, #30 PATCH 0 Refills may wear up to 12 hours Prov: COCO MESA DO 12/05/24 Education Educated: Patient Educated regarding: diagnosis, treatment, prognosis, need for follow up Signature Scribe Signature: No scribe Attestation: This note accurately reflects clinical decisions, work performed by myself, DO BONITA Orosco NICHOLAS M DO Dec 05, 2024 07:16
--- NOTE | 2024-12-05 07:22 | RADIOLOGY REPORT ---
FRONTAL CHEST AND left RIB RADIOGRAPHS HISTORY: Rib Pain TECHNIQUE: Multiple views of the left ribs with frontal view of the chest. COMPARISON: None. FINDINGS: The trachea is midline. The cardiac silhouette and mediastinum are within normal limits. No pneumothorax, pleural effusions, or consolidations. There is no evidence of an acute fracture, dislocation, blastic, or lytic lesions. No radiopaque foreign bodies. No superficial soft tissue abnormalities. Impression: 1. No evidence of an acute rib fracture. If there is persistent concern for fracture, a noncontrast CT of the chest is recommended as a nondisplaced fracture may not be detected on radiographs. No acute cardiopulmonary disease.
[2024-12-05] MEDS: HYDROcodone/acetaminophen 5mg/325mg tablet PO ONE (07:33)
--- NOTE | 2024-12-05 08:09 | RADIOLOGY REPORT ---
Procedure: CT CT CHEST Reason for study/Clinical History: L rib pain p fall Comparison Study: Left rib series dated 12/05/2024 and 11/27/2024. Exam Date: 12/05/2024 07:32 AM TECHNIQUE: Multidetector CT of the chest was performed from the lung apices to the upper abdomen with out the use of intravenous contract. Coronal and sagittal multiplanar reformats were performed. Radiation Dose Information: CT Dose: CTDI volume is 8.6 mGy. Dose-length product is 330.43 mGy*cm The dose indicators for CT are the volume Computed Tomography (CT) Dose Index (CTDIvol) and the Dose Length Product (DLP), and are measured in units of mGy and mGy-cm, respectively. These indicators are not patient dose, but values generated from the CT scanner acquisition factors. The report includes radiation exposure data for exposures received during this examination. FINDINGS: Lower neck: Normal thyroid. Lungs: No focal consolidation, pleural effusion or pneumothorax. Central airways: Patent. Heart/Vascular Structures: Normal heart size. No pericardial effusion. Normal caliber thoracic aorta and main pulmonary artery. Lymph Nodes: No adenopathy Pleura: No pleural effusion or significant pneumothorax. Musculoskeletal: No acute osseous abnormality. Soft tissues: Normal. Upper abdomen: Limited portions of the upper abdomen are unremarkable. IMPRESSION: 1. No acute intrathoracic abnormality. No acute rib fractures. Radiation optimization: All CT scans at this facility use at least one of these dose optimization ignacia hniques: automated exposure control mA and/or kV adjustment per patient size (includes targeted exam s where dose is matched to clinical indication) or iterative reconstruction.
[2024-12-05] MEDS ORDERED: NAPR-1166 PO (08:47)
[2024-12-05] MEDS ORDERED: LIDO-52 TOP (08:47)
[2024-12-05] MEDS ORDERED: DICL20GE TOP (08:47)
[2024-12-05] MEDS ORDERED: CYCL-920 PO (08:47)
[2024-12-05 08:54] VITALS: BP 120/76; PULSE 61; RESP 18; TEMP 97.3; O2SAT 99
== END 2024-12-05 09:00 | disposition home or self-care (01) ==
LOC: ER 06:36
DX: S20.212A Contusion of left front wall of thorax, initial encounter (principal); F41.9 Anxiety disorder, unspecified; F12.90 Cannabis use, unspecified, uncomplicated; Z88.1 Allergy status to other antibiotic agents; Z79.899 Other long term (current) drug therapy; Z72.89 Other problems related to lifestyle; W01.0XXA Fall on same level from slipping, tripping and stumbling without subsequent striking against object, initial encounter; Y93.89 Activity, other specified; Y92.89 Other specified places as the place of occurrence of the external cause; Y99.8 Other external cause status
CPT/HCPCS: 71100; 71250; 99284